=== PATIENT | female | born 1980 | race American Indian/Alaskan Native ===

== ENCOUNTER 2020-03-19 12:45 | Observation (INO) | payer OTHER ==
[2020-03-19] MEDS ORDERED: ACETAMINOPHEN 325 MG TAB PO PRN (12:52)
[2020-03-19] MEDS ORDERED: ONDANSETRON 4 MG/2 ML INJ IV PRN (12:52)
--- NOTE | 2020-03-19 12:57 | History and Physical Report ---
History of Present Illness Date of examination: 03/19/20 Date of admission: 03/19/2020 Chief complaint: here for pre op visit/ anemia History of present illness: Visit Type: Pre-Op CC: pre op. History of Present Illness: pt presents for pre-op for ablation....... ...............................................................Mohini Nelson March 19, 2020 10:05 AM Mask, Patient denies fever, cough, shortness of breath and exposure to COVID- 19.\ Pt was seen at hospital for pre op evaluation. Covid 19 testing is negative but hbg was noted to be 6.9. I d/w that she will need medical clearance from pcp for the procedure. States that pcp will note clear with hgb being this low. Pt did have hgb done 02/20/2020 that was 8.7 and was prior to scheduled procedure. She however, did have a heavy period with passing clots that happned after this lab draw. Today she does c/o feeling tired and having some fatigue she often feels when anemia which she did not have when seen in February when procedure was scheduled. I d/w admission for transfusion today in prep for procedure on Tuesday and that she will need to notify PCP of admission and transfusion so that she can have full clearance prior to the procedure scheduled in 2 days. She expressed understanding [facility] All risk/benefits/alternatives were d/w pt and questions were addressed and answered. She signed consents for ablation (Novasure) and D&C scheduled for Tuesday03/21/2020. 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 of genital herpes: no Partner hx. of genital herpes: no Hx of STD: None Active Medications (reviewed today): IBUPROFEN 800 MG ORAL TABLET (IBUPROFEN) 1 po q6 hr prn pain LYSTEDA 650 MG ORAL TABLET (TRANEXAMIC ACID) 1300 mg 3 times daily (3900 mg/day) for up to 5 days during monthly menstruation AMLODIPINE () IRON () CLONIDINE HCL TABLET (CLONIDINE HCL TABS) LABETALOL HCL TABLET (LABETALOL HCL TABS) STOOL SOFTNER () Current Allergies (reviewed today): * SULFA (Critical) Past Medical History: Reviewed history from 07/12/2019 and no changes required: Hypertension Anemia MENORRHAGIA OBESITY Past Surgical History: Reviewed history from 09/28/2018 and no changes required: positive Tubal Ligation Family History Summary: Reviewed history Last on 02/20/2020 and no changes required:03/19/2020 General Comments - FH: CHF-BROTHER DM, THN-MOTHER Social History: Reviewed history from 09/28/2018 and no changes required: Patient is Smoking History: Patient is a former smoker. occ etoh, no tobacc or drugs Dept of transportation Risk Factors: Smoked Tobacco Use: Never smoker Smokeless Tobacco Use: Never Drug use: no HIV high-risk behavior: no Alcohol use: yes Exercise: yes Seatbelt use: 100 % Past History Past Medical History: hypertension, other (anemia, obesity, meonrrhagia) Past Surgical History: other (see hpi) Family/Genetic History: other (see hpi) Social history: other - Obstetrical History : 3 Number of Living Children: 3 Medications and Allergies Allergies Allergy/AdvReac Type Severity Reaction Status Date / Time Sulfa (Sulfonamide Allergy Hives Verified 03/13/20 11:30 Antibiotics) Home Medications Medication Instructions Recorded Confirmed Last Taken Type Ferrous Sulfate [Feosol] 650 mg PO QDAY 03/13/20 03/13/20 Unknown History Ibuprofen [Motrin] 800 mg PO Q8HR PRN 03/13/20 03/13/20 Unknown History Olmesartan (Nf) [Benicar (Nf)] 40 mg PO QDAY 03/13/20 03/13/20 Unknown History Tranexamic Acid [Lysteda] 650 mg PO TID 03/13/20 03/13/20 Unknown History amLODIPine [Norvasc] 10 mg PO DAILY 03/13/20 03/13/20 Unknown History cloNIDine [Catapres] 0.2 mg PO QHS 03/13/20 03/13/20 Unknown History - Physical Exam Cardiovascular: Normal S1, Normal S2 Lungs: Positive: Clear to auscultation, Normal air movement Abdomen: Positive: normal appearance, soft. Negative: distention, tenderness, guarding Genitourinary (Female): Positive: other (deferred) Results All other labs normal. Assessment and Plan - Patient Problems (1) Symptomatic anemia Status: Acute Plan to address problem: -admit -transfuse 2 units -await f/u h/h after transfusion completed. (2) Menorrhagia Status: Acute Qualifiers: Menorrhagia type: with irregular cycle Qualified Code(s): N92.1 - Excessive and frequent menstruation with irregular cycle Plan to address problem: -scheduled for Novasure ablation pending transfusion and completion of medical clearance from PCP (3) Obesity Status: Acute (4) Hypertension Status: Acute
[2020-03-19] MEDS ORDERED: SODIUM CHLORIDE 0.9% 500 ML 500 ML IV ONE (21:15)
--- NOTE | 2020-03-20 05:59 | Event Note ---
Date: 03/20/20 Spoke with CARLY Mathew that states patient has not started transfusion at this time due to having no blood available in house due to antibody present. At this time it is not clear when the blood will be ready. The hopes are some time today but the blood is coming form the [place] and is not in house. I will discuss options with pt when rounding later this am.
--- NOTE | 2020-03-20 06:40 | Event Note ---
Date: 03/20/20 Blood bank showing two units now ready. I advied RN taking care of pt of this. She will call blood bank to see if blood is ready. I gave order to give each unit over two hours and to call provider if blood still not ready and when second unit is starting. She expressed understanding.
[2020-03-20] MEDS ORDERED: SODIUM CHLORIDE 0.9% 500 ML 500 ML ONE (08:09)
[2020-03-20] MEDS ORDERED: diphenhydrAMINE 25 MG CAP PO ONE (08:22)
[2020-03-20] MEDS ORDERED: diphenhydrAMINE 25 MG CAP PO STA (10:02)
--- NOTE | 2020-03-20 10:44 | Progress Note ---
Assessment and Plan - Patient Problems (1) Symptomatic anemia Current Visit: No Status: Acute Plan to address problem: -admit -transfuse 2 units -await f/u h/h after transfusion completed. (2) Menorrhagia Current Visit: No Status: Acute Qualifiers: Menorrhagia type: with irregular cycle Qualified Code(s): N92.1 - Excessive and frequent menstruation with irregular cycle Plan to address problem: -scheduled for Novasure ablation pending transfusion and completion of medical clearance from PCP (3) Obesity Current Visit: No Status: Acute (4) Hypertension Current Visit: No Status: Acute Subjective Date of service: 03/20/20 (late entry. Pt seen at 0815 this am) Principal diagnosis: Anemia 2)menorrhiaga 3)htn 4)obesity Interval history: Pt here for transfusion in prep for surgery Novasure ablation in the am. She has no c/o this am. Blood was available at time of my visit and is currently infusion unit 1. I encouraged pt to call pcp and advised that she is getting blood so that her final medical clearance can be submitted today in time for procedure in the am at 0800. She expressed understanding stating she would call. She has no questions at this time. Objective - Constitutional Vitals: Vital Signs - 12hr 03/20/20 03/20/20 03/20/20 00:30 05:04 07:45 Temperature 98.6 F 98.0 F 97.8 F Pulse Rate 74 73 70 Respiratory 16 18 18 Rate Blood Pressure 145/76 Blood Pressure 132/78 143/67 [Left] O2 Sat by Pulse 100 99 Oximetry 03/20/20 03/20/20 03/20/20 08:31 08:32 08:44 Temperature 968.1 F H 98.1 F Pulse Rate 72 72 Respiratory 18 20 Rate Blood Pressure 137/69 142/79 Blood Pressure [Left] O2 Sat by Pulse 99 98 Oximetry 03/20/20 03/20/20 03/20/20 09:00 09:25 10:04 Temperature 98.1 F 98.1 F Pulse Rate 71 76 71 Respiratory 18 16 Rate Blood Pressure 142/79 127/20 Blood Pressure [Left] O2 Sat by Pulse 99 99 Oximetry 03/20/20 10:14 Temperature 98.6 F Pulse Rate 69 Respiratory 18 Rate Blood Pressure 146/76 Blood Pressure [Left] O2 Sat by Pulse 99 Oximetry General appearance: Present: no acute distress - Respiratory Respiratory effort: normal Extremities: no ischemia - Genitourinary Female genitourinary: other (deferred as pt not bleeding at this time.) - Musculoskeletal Musculoskeletal: strength equal bilaterally - Neurologic Neurologic: CNII-XII intact - Labs Labs: Abnormal lab results 03/19/20 Range/Units 19:30 Crossmatch See Detail Medications & Allergies - Medications Allergies/Adverse Reactions: Allergies Sulfa (Sulfonamide Antibiotics) Allergy (Verified 03/13/20 11:30) Hives Home Medications: Home Medications Medication Instructions Recorded Confirmed Last Taken Type Ferrous Sulfate [Feosol] 650 mg PO QDAY 03/13/20 03/13/20 Unknown History Ibuprofen [Motrin] 800 mg PO Q8HR PRN 03/13/20 03/13/20 Unknown History Olmesartan (Nf) [Benicar (Nf)] 40 mg PO QDAY 03/13/20 03/13/20 Unknown History Tranexamic Acid [Lysteda] 650 mg PO TID 03/13/20 03/13/20 Unknown History amLODIPine [Norvasc] 10 mg PO DAILY 03/13/20 03/13/20 Unknown History cloNIDine [Catapres] 0.2 mg PO QHS 03/13/20 03/13/20 Unknown History Active Medications: Generic Name Dose Route Start Last Admin Trade Name Freq PRN Reason Stop Dose Admin Acetaminophen 650 mg 03/19/20 12:52 03/20/20 08:17 Tylenol PO 650 mg Q4H PRN Administration Pain MILD(1-3)/Fever >100.5/JIMENEZ Ondansetron HCl 4 mg 03/19/20 12:52 Zofran IV Q8H PRN Nausea And Vomiting Sodium Chloride 10 ml 03/19/20 22:00 Sodium Chloride Flush Syringe 10 Ml IV BID YARI Sodium Chloride 10 ml 03/19/20 12:52 Sodium Chloride Flush Syringe 10 Ml IV PRN PRN LINE FLUSH
[2020-03-20 12:40] VITALS: BP 136/75
[2020-03-20 14:01] LABS: Hematocrit 26.9 % (30.3-42.9); Hemoglobin 8.7 gm/dl (10.1-14.3)
--- NOTE | 2020-03-20 14:11 | Discharge Summary ---
Providers - Providers Date of Admission: 03/19/20 19:01 Date of discharge: 03/20/20 Attending physician: PAUL SANTAMARIA Primary care physician: COLLIN GONZALEZ Hospitalization Reason for admission: other (anemia) Procedure: other (blood transfusion) Discharge diagnosis: other (menorhagia 2) anemia) Hospital course: Pt admitted for transfusion. Pt felt better after xfusion. Pt scheduled for Novasure ablation in the am. Condition at discharge: Good Disposition: DC-01 TO HOME OR SELFCARE - Discharge Diagnoses (1) Symptomatic anemia Status: Acute (2) Menorrhagia Status: Acute Qualifiers: Menorrhagia type: with irregular cycle Qualified Code(s): N92.1 - Excessive and frequent menstruation with irregular cycle (3) Obesity Status: Acute (4) Hypertension Status: Acute Plan - Provider Discharge Summary Additional instructions: [] Smoking cessation referral if applicable(refer to patient education folder for contact #) [] Refer to [facility] Booklet Call your doctor immediately for: * Fever > 100.5 * Heavy vaginal bleeding ( >1 pad per hour) * Severe persistent headache * Shortness of breath * Reddened, hot, painful area to leg or breast * Drainage or odor from incision. * Call PCP and inform that the labs have been sent so that the final medial clearance letter can be faxed to pre OP. - Follow up plan Follow up: COLLIN GONZALEZ MD [Primary Care Provider] - 7 Days Forms: [facility] Discharge Summary, Work/School Release Form
== END 2020-03-20 15:00 | disposition home or self-care (01) ==
LOC: UNDOADMOB 12:45 → 3A 12:45 → OB 19:01
PROVIDERS: ADMIT Obstetrics & Gynecology; ATTEND Obstetrics & Gynecology
DX: D64.9 Anemia, unspecified (principal); N92.0 Excessive and frequent menstruation with regular cycle; I10 Essential (primary) hypertension; E66.9 Obesity, unspecified; Z98.891 History of uterine scar from previous surgery; Z98.51 Tubal ligation status; Z87.891 Personal history of nicotine dependence; Z68.41 Body mass index [BMI] 40.0-44.9, adult
CPT/HCPCS: 36415; 36430; 85014; 85018; 86850; 86870; 86900; 86901; 86922; G0378; G0379; J7040; P9016; 86920

== ENCOUNTER 2020-03-21 06:06 | Day surgery (SDC) | payer OTHER ==
[2020-03-17 10:55] LABS: Mean Corpuscular HGB Conc 29 % (30-34); Platelet Count 357 K/mm3 (140-440); Red Blood Count 3.65 M/mm3 (3.65-5.03); Red Cell Distribution Width 17.8 % (13.2-15.2)
[2020-03-17 11:03] LABS: Hematocrit 24.2 % (30.3-42.9); Hemoglobin 6.9 gm/dl (10.1-14.3)
[2020-03-17 11:04] LABS: Mean Corpuscular Volume 66 fl (79-97)
[2020-03-17 16:11] LABS: Blood Urea Nitrogen 12 mg/dL (7-17); Calcium 8.9 mg/dL (8.4-10.2); Hemolysis Index 0
[2020-03-17 16:12] LABS: BUN/Creatinine Ratio 17
--- NOTE | 2020-03-20 20:51 | History and Physical Report ---
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 History of Present Illness: pt presents for pre-op for ablation....................................................... ...............Mohinitrish Nelson March 19, 2020 10:05 AM Mask, Patient denies fever, cough, shortness of breath Pt was seen at hospital for pre op evaluation. Covid 19 testing is negative but hbg was noted to be 6.9. I d/w that she will need medical clearance from pcp for the procedure. States that pcp will note clear with hgb being this low. Pt was then admitted and had 2 units of PRBC on 03/20/2020 and repeat hgb was 8. Pt did have hgb done 02/20/2020 that was 8.7 and was prior to scheduled procedure. She however, did have a heavy period with passing clots that happned after this lab draw. Pt is here for Novasure ablation. All risk/benefits/alternatives were d/w pt and questions were addressed and answered. She signed consents for ablation (Novasure) and D&C scheduled for Tuesday03/21/2020. 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 of genital herpes: no Partner hx. of genital herpes: no Hx of STD: None Active Medications (reviewed today): IBUPROFEN 800 MG ORAL TABLET (IBUPROFEN) 1 po q6 hr prn pain LYSTEDA 650 MG ORAL TABLET (TRANEXAMIC ACID) 1300 mg 3 times daily (3900 mg/day) for up to 5 days during monthly menstruation AMLODIPINE () IRON () CLONIDINE HCL TABLET (CLONIDINE HCL TABS) LABETALOL HCL TABLET (LABETALOL HCL TABS) STOOL SOFTNER () Current Allergies (reviewed today): * SULFA (Critical) Past Medical History: Reviewed history from 07/12/2019 and no changes required: Hypertension Anemia MENORRHAGIA OBESITY Past Surgical History: Reviewed history from 09/28/2018 and no changes required: positive Tubal Ligation Family History Summary: Reviewed history Last on 02/20/2020 and no changes required:03/19/2020 General Comments - FH: CHF-BROTHER DM, THN-MOTHER Social History: Reviewed history from 09/28/2018 and no changes required: Patient is Smoking History: Patient is a former smoker. occ etoh, no tobacc or drugs Dept of transportation Risk Factors: Smoked Tobacco Use: Never smoker Smokeless Tobacco Use: Never Drug use: no HIV high-risk behavior: no Alcohol use: yes Exercise: yes Seatbelt use: 100 % Past History Past Medical History: hypertension, other (anemia, obesity, meonrrhagia) Past Surgical History: other (see hpi) Family/Genetic History: other (see hpi) Social history: other - Obstetrical History : 3 Number of Living Children: 3 Medications and Allergies Allergies Allergy/AdvReac Type Severity Reaction Status Date / Time Sulfa (Sulfonamide Allergy Hives Verified 03/13/20 11:30 Antibiotics) Home Medications Medication Instructions Recorded Confirmed Last Taken Type Ferrous Sulfate [Feosol] 650 mg PO QDAY 03/13/20 03/13/20 Unknown History Ibuprofen [Motrin] 800 mg PO Q8HR PRN 03/13/20 03/13/20 Unknown History Olmesartan (Nf) [Benicar (Nf)] 40 mg PO QDAY 03/13/20 03/13/20 Unknown History Tranexamic Acid [Lysteda] 650 mg PO TID 03/13/20 03/13/20 Unknown History amLODIPine [Norvasc] 10 mg PO DAILY 03/13/20 03/13/20 Unknown History cloNIDine [Catapres] 0.2 mg PO QHS 03/13/20 03/13/20 Unknown History - Physical Exam Cardiovascular: Normal S1, Normal S2 Lungs: Positive: Clear to auscultation, Normal air movement Abdomen: Positive: normal appearance, soft. Negative: distention, tenderness, guarding Genitourinary (Female): Positive: other (deferred) Results All other labs normal. Assessment and Plan - Patient Problems (1) Symptomatic anemia Status: Acute Plan to address problem: -admit -transfuse 2 units -await f/u h/h after transfusion completed. (2) Menorrhagia Status: Acute Qualifiers: Menorrhagia type: with irregular cycle Qualified Code(s): N92.1 - Excessive and frequent menstruation with irregular cycle Plan to address problem: -scheduled for Novasure ablation pending transfusion and completion of medical clearance from PCP (3) Obesity Status: Acute (4) Hypertension Status: Acute Medications and Allergies Allergies Allergy/AdvReac Type Severity Reaction Status Date / Time Sulfa (Sulfonamide Allergy Hives Verified 03/13/20 11:30 Antibiotics) Home Medications Medication Instructions Recorded Confirmed Last Taken Type Ferrous Sulfate [Feosol] 650 mg PO QDAY 03/13/20 03/20/20 Unknown History Ibuprofen [Motrin] 800 mg PO Q8HR PRN 03/13/20 03/20/20 Unknown History Olmesartan (Nf) [Benicar (Nf)] 40 mg PO QDAY 03/13/20 03/20/20 Unknown History Tranexamic Acid [Lysteda] 650 mg PO TID 03/13/20 03/20/20 Unknown History amLODIPine [Norvasc] 10 mg PO DAILY 03/13/20 03/20/20 Unknown History cloNIDine [Catapres] 0.2 mg PO QHS 03/13/20 03/20/20 Unknown History - Vital Signs Vital signs: Vital Signs Temp Pulse Resp BP Pulse Ox 99.2 F 80 20 164/84 100 03/17/20 10:35 03/17/20 10:35 03/17/20 10:35 03/17/20 10:35 03/17/20 10:35 Temp Pulse Resp BP Pulse Ox 99.2 F 80 20 164/84 100 03/17/20 10:35 03/17/20 10:35 03/17/20 10:35 03/17/20 10:35 03/17/20 10:35 Results Result Diagrams: 03/17/20 10:30 03/17/20 10:51 All other labs normal. Assessment and Plan - Patient Problems (1) Hypertension Status: Acute (2) Menorrhagia Status: Acute Qualifiers: Menorrhagia type: with irregular cycle Qualified Code(s): N92.1 - Excessive and frequent menstruation with irregular cycle Plan to address problem: -admit and prepare for Novasure with D&C -all risk, beneftis and alternatives were d/w pt and questions were addessed and answered.
[~2020-03-21 06:06] MED LIST: ceFAZolin/Water 2 GM/20 ML 2 GM/20 ML SYRINGE IV NR
[2020-03-21] MEDS ORDERED: LACTATED RINGERS 1,000 ML ONE (07:03)
[2020-03-21] MEDS ORDERED: SILVER NITRATE APPLICATOR 1 EA TP ONE (07:28)
[2020-03-21] MEDS ORDERED: PHENYLEPHRINE/NS 1,000 MCG/10 ML SYRINGE (OR USE) IV ONE (07:42)
[2020-03-21] MEDS ORDERED: dexAMETHasone 20 MG/5 ML VIAL ONE (07:42)
[2020-03-21] MEDS ORDERED: LIDOCAINE MPF (2%) 20 MG/1 ML VIAL 5 ML ONE (07:42)
[2020-03-21] MEDS ORDERED: ONDANSETRON 4 MG/2 ML INJ ONE (07:42)
[2020-03-21] MEDS ORDERED: SUCCINYLCHOLINE CHLORIDE 200 MG/10 ML INJ MDV ONE (07:42)
[2020-03-21] MEDS ORDERED: propofoL 200 MG/20 ML VIAL IV ONE (07:43)
[2020-03-21] MEDS ORDERED: fentaNYL 100 MCG/2 ML INJ ONE (07:43)
[2020-03-21] MEDS ORDERED: HYDROmorphone 1 MG/1 ML INJ IV PRN ×2 (07:48)
[2020-03-21] MEDS ORDERED: ONDANSETRON 4 MG/2 ML INJ IV PRN (07:48)
--- NOTE | 2020-03-21 07:54 | Anesthesia Consultation ---
Anesthesia Consult and Med Hx Date of service: 03/21/20 - Airway Anesthetic Teeth Evaluation: Good ROM Head & Neck: Adequate Mental/Hyoid Distance: Adequate Mallampati Class: Class II Intubation Access Assessment: Probably Good - Pre-Operative Health Status ASA Pre-Surgery Classification: ASA3 Proposed Anesthetic Plan: General - Pulmonary Hx Smoking: Yes (former) Hx Asthma: No Hx Respiratory Symptoms: No SOB: No COPD: No Home Oxygen Therapy: No Hx Pneumonia: No Hx Sleep Apnea: Yes - Cardiovascular System Hx Hypertension: Yes Hx Coronary Artery Disease: No Hx Heart Attack/AMI: No Hx Angina: No Hx Percutaneous Transluminal Coronary Angioplasty (PTCA): No Hx Cardia Arrhythmia: No Hx Pacemaker: No Hx Internal Defibrillator: No Hx Valvular Heart Disease: No Hx Heart Murmur: No Hx Peripheral Vascular Disease: No - Central Nervous System Hx Neuromuscular Disorder: No Hx Seizures: No CVA: No Hx Back Pain: No Hx Psychiatric Problems: No - Gastrointestinal Hx Ulcer: No Hx Gastroesophageal Reflux Disease: No - Endocrine Hx Renal Disease: No Hx End Stage Renal Disease: No Hx Cirrhosis: No Hx Liver Disease: No Hx Insulin Dependent Diabetes: No Hx Non-Insulin Dependent Diabetes: No Hx Thyroid Disease: No Hx Hypothyroidism: No Hx Hyperthyroidism: No - Hematic Hx Anemia: Yes Hx Sickle Cell Disease: No - Other Systems Hx Alcohol Use: Yes (occ.) Hx Substance Use: No Hx Cancer: No Hx Obesity: Yes
--- NOTE | 2020-03-21 07:55 | Anesthesia Day of Surgery ---
Anesthesia Day of Surgery - Day of Surgery Patient Examined: Yes Patient H&P Reviewed: Yes Patient is NPO: Yes
[2020-03-21] MEDS ORDERED: LACTATED RINGERS 1,000 ML IV SCH (08:00)
[2020-03-21] MEDS ORDERED: HYDROmorphone 1 MG/1 ML INJ ONE (08:22)
[2020-03-21] MEDS ORDERED: SODIUM CHLORIDE 0.9% IRR 1,500 ML BOTTLE IR ONE (08:29)
--- NOTE | 2020-03-21 09:03 | Operative Report ---
Operative Report Operative Report: Date of procedure: 03/21/2020 Pre-operative diagnosis: Menorrhagia Post-operative diagnosis: Same Procedure name(s): 1. Hysteroscopy 2. NovaSure ablation Surgeon: Tiana Snow M.D. Practice Or Student Teacher: MARIA ISABEL Anesthesia: General endotracheal anesthesia EBL: Minimal Urine output: Approximately 25 cc of clear urine out prior to the onset of the procedure Fluids: 1 L Findings: Grossly normal uterus with thickened endometrium prior to the onset of the procedure both ostia were clearly seen and appeared to be normal Fully ablated uterus and cervix with charred looking tissue noted at the end of the procedure with postoperative hysteroscopy Indications: Patient with a long history of menorrhagia that has required several blood transfusions presents for NovaSure ablation. Patient had failed medical therapy with Mirena and Lysteda. All risk benefits and alternatives were discussed with the patient. Consents were signed and placed on the chart. Procedure: Patient was taken to the operating room where she was placed under general endotracheal anesthesia she was then prepped and draped in normal ster ile fashion in dorsal lithotomy position with legs in Nathaniel stirrups. Straight catheterization of the bladder was performed at this time. Sterile speculum was placed inside of the vagina to visualize the entire cervix. The anterior lip of the cervix was grasped with a single-tooth tenaculum and the uterus was sounded to 10 cm. The cervix was then dilated in order to allow passage of the hyster oscope. Hysteroscopy yielded the above-stated findings. The uterus was sounded to 10 cm. The cervical length was noted to be 5 cm. The uterine cavity length was calculated to be 5 cm. The cervix was then dilated more to allow passage of the NovaSure device. With placement of the NovaSure device the cavity width was noted to be 3.0 cm. The integrity of the seal was then tested. The device did pass the testing. The power that was used for the NovaSure ablation was 83 desouza. The amount of time of the ablation was 1min52 seconds. Hysteroscopy following the ablation noted that there was adequate cauterization of the cervix to the point of the internal cervical os. However evaluation of the uterine cavity yielded thickened endometrium with pink tissue that had not been ablated. A second NovaSure device was then inserted. The cavity width at this time was noted to be 4.4 cm. The integrity of the cell was tested. The device did pass the test. The power for the second time was 125 desouza and the time of ablation was 2 minutes. Hysteroscopy was then performed and this time it was noted that the entire uterine fundus had been completely ablated with charred tissue noted. There was no bleeding noted. Sponge and instrument counts was noted to be correct. Patient tolerated procedure well. Patient was taken to recovery room awake and in stable condition.
--- NOTE | 2020-03-21 09:04 | Discharge Summary ---
Providers - Providers Date of discharge: 03/21/20 Attending physician: PAUL SNOW Primary care physician: COLLIN GONZALEZ Hospitalization Reason for admission: other (menorrhagia 2) anemai) Procedure: other (Novasure ablation of uterine fundus and cervix) Procedure details: see op report Discharge diagnosis: other (same as above) Hospital course: Pt admitted for above-stated procedure. Please see operative report for details. Patient will be discharged home when she has met discharge criteria in the PACU. Patient will follow-up with Dr. Snow in approximately 1 week. Patient's family has been called and updated on patient status and the success of her surgery. All questions were addressed and answered. Condition at discharge: Good Disposition: DC-01 TO HOME OR SELFCARE - Discharge Diagnoses (1) Hypertension Status: Acute (2) Menorrhagia Status: Acute Qualifiers: Menorrhagia type: with irregular cycle Qualified Code(s): N92.1 - Excessive and frequent menstruation with irregular cycle Plan - Discharge Medications Prescriptions: Ibuprofen [Motrin 800 MG tab] 800 mg PO Q8HR PRN #30 tablet PRN Reason: Pain, Moderate (4-6) oxyCODONE /ACETAMINOPHEN [Percocet 5/325] 1 tab PO Q4HR #10 tab - Provider Discharge Summary Additional instructions: [] Smoking cessation referral if applicable(refer to patient education folder for contact #) [] Refer to [facility] Booklet Call your doctor immediately for: * Fever > 100.5 * Heavy vaginal bleeding ( >1 pad per hour) * Severe persistent headache * Shortness of breath * Reddened, hot, painful area to leg or breast * Drainage or odor from incision. * Keep incision clean and dry at all times and follow doctor's instructions regarding bathing/showering - Follow up plan Follow up: COLLIN GONZALEZ MD [Primary Care Provider] - 7 Days
[2020-03-21] MEDS ORDERED: VERAPAMIL 5 MG/2 ML INJ IV NR (09:36)
[2020-03-21 10:48] VITALS: BP 150/82
--- NOTE | 2020-03-21 12:43 | Post Anesthesia Evaluation ---
- Post Anesthesia Evaluation Patient Participated: Yes Airway Patent: Yes Stable Respiratory Function: Yes Nausea/Vomiting: No Temp > 96.8F: Yes Pain Manageable: Yes Adequeate Hydration: Yes Anesthesia Complications: No Block Receding Appropriately: Not Applicable Patient on Ventilator: No
== END 2020-03-21 12:03 | disposition home or self-care (01) ==
LOC: OR 06:06
PROVIDERS: ATTEND Obstetrics & Gynecology
DX: N92.0 Excessive and frequent menstruation with regular cycle (principal); Z20.828 Contact with and (suspected) exposure to other viral communicable diseases; D50.0 Iron deficiency anemia secondary to blood loss (chronic); I10 Essential (primary) hypertension; E66.9 Obesity, unspecified; G47.30 Sleep apnea, unspecified; Z72.89 Other problems related to lifestyle; Z88.2 Allergy status to sulfonamides; Z79.899 Other long term (current) drug therapy; Z87.891 Personal history of nicotine dependence; Z68.41 Body mass index [BMI] 40.0-44.9, adult; Z98.891 History of uterine scar from previous surgery; Z98.890 Other specified postprocedural states
CPT/HCPCS: 36415; 58563; 80048; 84703; 85027; J0330; J0690; J1100; J1170; J2370; J2405; J2704; J3010; J7120; U0003